=== PATIENT | male | born 1955 | race Asian ===

== ENCOUNTER 2018-07-01 00:39 | Emergency (ER) | payer MEDICAID ==
[~2018-07-01] VITALS: Ht 167.6 cm; Wt 68.2 kg
[~2018-07-01 00:39] MED LIST: AMLO-512 PO; ASPI81TA39 PO; CLOP75 PO; GLIP5 PO; ISOS30TA6 PO; LISI-661 PO; METO25XL PO; PRAV10TA39 PO
[2018-07-01 00:49] LABS: GLUCOSE,POINT OF CARE 151 MG/DL (70-110)
[2018-07-01] MEDS ORDERED: ISOS1TAB2 PO (00:49)
[2018-07-01] MEDS ORDERED: ATOR40TA28 PO (00:49)
[2018-07-01] MEDS ORDERED: GLIP5 PO (00:49)
[2018-07-01] MEDS ORDERED: RANO500T3 PO (00:49)
[2018-07-01] MEDS ORDERED: HYDR-2924 PO (00:49)
[2018-07-01] MEDS ORDERED: ALLO100T PO (00:49)
[2018-07-01] MEDS ORDERED: CARV6 PO (00:49)
[2018-07-01 01:07] LABS: BASOPHILS % (AUTO) 0.7 % (0.0-2.0); EOSINOPHILS % (AUTO) 6.2 % (1.0-6.0); HEMATOCRIT 36.3 % (41-53); HEMOGLOBIN 12.1 g/dL (13.5-17.5); LYMPHOCYTES # (AUTO) 1.9 K/uL (1.0-4.8); MEAN CORPUSCULAR HEMOGLOBIN 33.8 pg (26.0-34.0); MEAN CORPUSCULAR HGB CONC 33.4 G/dL (31.0-37.0); MEAN CORPUSCULAR VOLUME 101 fL (80-100); MONOCYTES # (AUTO) 0.8 K/uL (0.1-1.0); MONOCYTES % (AUTO) 9.3 % (2.0-9.0); NEUTROPHILS # (AUTO) 5.3 K/uL (1.8-7.7); NEUTROPHILS % (AUTO) 61.8 % (40.0-70.0); PLATELET COUNT (AUTO) 155 K/uL (150-450); RED CELL DISTRIBUTION WIDTH 12.3 % (11.5-14.5)
[2018-07-01 01:16] LABS: CALCIUM, TOTAL 8.5 mg/dL (8.8-10.5); CREATININE 3.5 mg/dL (0.60-1.30); POTASSIUM 5.1 mmol/L (3.5-5.1)
[2018-07-01 01:22] LABS: ALBUMIN 3.4 g/dL (3.4-5.0); BILIRUBIN,TOTAL 0.2 mg/dL (0.1-1.0)
[2018-07-01 01:29] LABS: PLATELET MORPHOLOGY COMMENT GIANT PLTS PRESENT
[2018-07-01] MEDS ORDERED: SODIUM POLYSTYRENE SULFONATE 15 GM/60 ML SUSPENSION BOTTLE PO ONE (02:15)
[2018-07-01 02:16] LABS: APPEARANCE,URINE CLEAR (CLEAR); BILIRUBIN,URINE NEGATIVE (NEGATIVE); GLUCOSE, URINE (UA) NEGATIVE (NEGATIVE); KETONES,URINE NEGATIVE (NEGATIVE); LEUKOCYTE ESTERASE ,URINE NEGATIVE (NEGATIVE); NITRATE,URINE NEGATIVE (NEGATIVE); OCCULT BLOOD,URINE NEGATIVE (NEGATIVE); PH,URINE 6.5 (5.0-8.0); PROTEIN,URINE SEE CONFIRM (NEGATIVE); UROBILINOGEN,URINE 0.2 mg/dL (<=1.0)
[2018-07-01 02:22] LABS: SULFOSALICYLIC ACID,URINE 3+ (Negative)
[2018-07-01 02:23] LABS: BACTERIA,URINE None Seen /HPF (None Seen); HYALINE CASTS, URINE 0-2 /LPF (None Seen); RBC,URINE 0-2 /HPF (0-2); SQUAMOUS EPITHELIAL CELL,UR Rare /LPF (None Seen); WBC,URINE 0-2 /HPF (0-5)
[2018-07-01 03:11] VITALS: BP 136/88
== END 2018-07-01 03:14 | disposition home or self-care (01) ==
LOC: EMS 00:39
DX: I12.9 Hypertensive chronic kidney disease with stage 1 through stage 4 chronic kidney disease, or unspecified chronic kidney disease (principal); E11.22 Type 2 diabetes mellitus with diabetic chronic kidney disease; N18.9 Chronic kidney disease, unspecified; E87.6 Hypokalemia; M19.90 Unspecified osteoarthritis, unspecified site; E78.00 Pure hypercholesterolemia, unspecified; I20.9 Angina pectoris, unspecified; Z90.5 Acquired absence of kidney; Z79.82 Long term (current) use of aspirin
CPT/HCPCS: 93005; 99285

== ENCOUNTER → 2019-08-03 | Outpatient (CLI) | payer MEDICAID ==
[~2019-08-03] MED LIST changes: +ALLO100T PO; -AMLO-512 PO; +ATOR40TA28 PO; +CARV6 PO; -CLOP75 PO; +CLOP75TA3 PO; +HYDR-2924 PO; +ISOS1TAB2 PO; -ISOS30TA6 PO; -LISI-661 PO; -METO25XL PO; -PRAV10TA39 PO; +RANO500T3 PO
== END | disposition home or self-care (01) ==
LOC: LABPV 11:25
PROVIDERS: ATTEND Internal Medicine Nephrology
DX: I70.0 Atherosclerosis of aorta (principal); I11.0 Hypertensive heart disease with heart failure; I50.20 Unspecified systolic (congestive) heart failure; E11.9 Type 2 diabetes mellitus without complications; E78.00 Pure hypercholesterolemia, unspecified

== ENCOUNTER 2022-12-22 17:27 | Emergency (ER) | payer MEDICAID ==
[~2022-12-22] VITALS: Ht 162.6 cm; Wt 59.1 kg
[~2022-12-22 17:27] MED LIST changes: +ALLO-97 PO; -ALLO100T PO; -CLOP75TA3 PO; +CLOP75TA60 PO; -GLIP5 PO; +GLIP5TAB12 PO; -HYDR-2924 PO; +HYDR50TA36 PO; -ISOS1TAB2 PO; +ISOS1TAB3 PO; +RANO500T27 PO; -RANO500T3 PO
[2022-12-22 21:00] VITALS: BP 125/69
== END 2022-12-22 21:02 | disposition home or self-care (01) ==
LOC: EMS 17:28
DX: S09.90XA Unspecified injury of head, initial encounter (principal); M19.90 Unspecified osteoarthritis, unspecified site; E78.00 Pure hypercholesterolemia, unspecified; E11.22 Type 2 diabetes mellitus with diabetic chronic kidney disease; I12.0 Hypertensive chronic kidney disease with stage 5 chronic kidney disease or end stage renal disease; N18.6 End stage renal disease; Z99.2 Dependence on renal dialysis; Z98.890 Other specified postprocedural states; X58.XXXA Exposure to other specified factors, initial encounter; Y93.89 Activity, other specified; Y92.89 Other specified places as the place of occurrence of the external cause; Y99.8 Other external cause status
CPT/HCPCS: 70450; 70486; 82962; 99284

== ENCOUNTER 2023-01-27 21:44 | Inpatient (IN) | payer MEDICAID ==
[~2023-01-27] VITALS: Ht 162.6 cm; Wt 57.5 kg
[~2023-01-27 21:44] MED LIST changes: -ASPI81TA39 PO; -ATOR40TA28 PO; +CARV3 PO; -CARV6 PO; +CHOL100062 PO; -CLOP75TA60 PO; +FOLI0.8T2 PO; +GLIP5TAB11 PO; -GLIP5TAB12 PO; -HYDR50TA36 PO; -ISOS1TAB3 PO; +LOSA25TA2 PO; +PRED-554 PO; -RANO500T27 PO; +ROSU20TA73 PO; +SEVE800T17 PO; +SPIR-37 PO
[2023-01-27] MEDS ORDERED: NITROGLYCERIN 2% (1 GM=INCH) OINTMENT PACKET TP ONE (22:15)
[2023-01-27] MEDS ORDERED: ASPIRIN 325 MG TABLET PO ONE (22:15)
[2023-01-27] MEDS ORDERED: NITROGLYCERIN 0.4 MG SUBLINGUAL TABLET #25 SL ONE (22:15)
[2023-01-27] MEDS ORDERED: RANO500T6 PO (22:21)
[2023-01-27] MEDS ORDERED: ISOS1TAB3 PO (22:21)
[2023-01-27] MEDS ORDERED: SUCR500T PO (22:21)
[2023-01-27] MEDS ORDERED: ASPI-1227 PO (22:21)
[2023-01-27] MEDS ORDERED: ONDANSETRON HCL 4 MG/2 ML VIAL IVP ONE (23:00)
[2023-01-27 23:10] LABS: CALCIUM, TOTAL 8.3 mg/dL (8.8-10.5); CREATININE 5.91 mg/dL (0.60-1.30); POTASSIUM 5.3 mmol/L (3.5-5.1)
[2023-01-27 23:13] LABS: ALBUMIN 3.8 g/dL (3.4-5.0); BILIRUBIN,TOTAL 0.7 mg/dL (0.1-1.0); TOTAL PROTEIN, SERUM 7.3 g/dL (6.4-8.2)
[2023-01-27 23:18] LABS: BASOPHILS % (AUTO) 0.1 % (0.0-2.0); EOSINOPHILS % (AUTO) 0 % (1.0-6.0); HEMATOCRIT 25.1 % (41-53); HEMOGLOBIN 7.9 g/dL (13.5-17.5); LYMPHOCYTES # (AUTO) 0.6 K/uL (1.0-4.8); LYMPHOCYTES % (AUTO) 5.1 % (22.0-44.0); MEAN CORPUSCULAR HEMOGLOBIN 34.8 pg (26.0-34.0); MEAN CORPUSCULAR HGB CONC 31.7 G/dL (31.0-37.0); MEAN CORPUSCULAR VOLUME 110 fL (80-100); MONOCYTES # (AUTO) 0.7 K/uL (0.1-1.0); MONOCYTES % (AUTO) 5.7 % (2.0-9.0); NEUTROPHILS # (AUTO) 10.5 K/uL (1.8-7.7); PLATELET COUNT (AUTO) 81 K/uL (150-450); RED BLOOD CELL COUNT(AUTO) 2.28 MIL/uL (4.50-5.90); RED CELL DISTRIBUTION WIDTH 17.7 % (11.5-14.5)
[2023-01-27 23:24] LABS: NEUTROPHILS % (AUTO) 89.1 % (40.0-70.0)
[2023-01-27] MEDS ORDERED: ACETAMINOPHEN 325 MG TABLET PO PRN (23:30)
[2023-01-27] MEDS ORDERED: ONDANSETRON HCL 4 MG/2 ML VIAL IVP PRN (23:30)
[2023-01-27] MEDS ORDERED: SODIUM CHLORIDE 0.9% 500 ML IV ONE (23:30)
[2023-01-27 23:42] LABS: LACTIC ACID 3.8 mmol/L (0.4-2.0)
[2023-01-27] MEDS ORDERED: DEXTROSE 50%-WATER 25 GM/50 ML SYRINGE IVP ONE (23:45)
[2023-01-27] MEDS ORDERED: INSULIN REGULAR, HUMAN 100 UNITS/ML SQ ONE (23:45)
[2023-01-28] VITALS (8 sets, daily range): BP systolic 87–106; BP diastolic 44–74
[2023-01-28] MEDS ORDERED: INSULIN REGULAR, HUMAN 100 UNITS/ML IVP ONE (00:15)
[2023-01-28 00:27] LABS: COVID AG,FIA SOURCE NASOPHARYNGEAL
[2023-01-28] MEDS ORDERED: PANTOPRAZOLE SODIUM 40 MG/VIAL IVP ONE (00:45)
[2023-01-28] MEDS ORDERED: INSULIN REGULAR, HUMAN 100 UNITS in SODIUM CHLORIDE 0.9% 99 ML IV PRN ×2 (00:45)
[2023-01-28] MEDS ORDERED: PIPERACILLIN SODIUM/TAZOBACTAM 0.75 GM in DEXTROSE 5%-WATER 50 ML IV PRN (01:00)
[2023-01-28] MEDS ORDERED: IOHEXOL 350 MG/ML 100 ML VIAL ONE (01:33)
[2023-01-28] MEDS ORDERED: SODIUM CHLORIDE 0.9% 100 ML ONE (01:33)
[2023-01-28] MEDS: PANTOPRAZOLE SODIUM 80 MG in SODIUM CHLORIDE 0.9% 100 ML IV SCH ×3 (02:02→21:05)
[2023-01-28] MEDS: PIPERACILLIN SODIUM/TAZOBACTAM 2.25 GM in DEXTROSE 5%-WATER 50 ML IV SCH ×2 (02:02→13:18)
[2023-01-28 02:16] LABS: GLUCOSE,POINT OF CARE 545 MG/DL (70-110)
[2023-01-28 02:55] LABS: % IRON SATURATION 84.4 % (30-44)
[2023-01-28 03:06] LABS: GLUCOSE,POINT OF CARE 533 MG/DL (70-110)
[2023-01-28] MEDS ORDERED: SODIUM CHLORIDE 0.9% 250 ML IV ONE ×2 (04:15→22:38)
[2023-01-28 04:21] LABS: GLUCOSE,POINT OF CARE 424 MG/DL (70-110)
[2023-01-28 04:46] LABS: BASOPHILS % (AUTO) 0.3 % (0.0-2.0); EOSINOPHILS % (AUTO) 0.1 % (1.0-6.0); LYMPHOCYTES # (AUTO) 0.6 K/uL (1.0-4.8); LYMPHOCYTES % (AUTO) 4.3 % (22.0-44.0); MEAN CORPUSCULAR HEMOGLOBIN 34.7 pg (26.0-34.0); MEAN CORPUSCULAR HGB CONC 32.1 G/dL (31.0-37.0); MEAN CORPUSCULAR VOLUME 108 fL (80-100); MONOCYTES # (AUTO) 0.5 K/uL (0.1-1.0); MONOCYTES % (AUTO) 3.2 % (2.0-9.0); NEUTROPHILS # (AUTO) 12.9 K/uL (1.8-7.7); PLATELET COUNT (AUTO) 73 K/uL (150-450); RED BLOOD CELL COUNT(AUTO) 1.91 MIL/uL (4.50-5.90); RED CELL DISTRIBUTION WIDTH 16.8 % (11.5-14.5)
[2023-01-28 04:50] LABS: CALCIUM, TOTAL 7.6 mg/dL (8.8-10.5); POTASSIUM 4.1 mmol/L (3.5-5.1)
[2023-01-28 04:52] LABS: NEUTROPHILS % (AUTO) 92.1 % (40.0-70.0)
[2023-01-28 04:55] LABS: HEMATOCRIT 20.6 % (41-53); HEMOGLOBIN 6.6 g/dL (13.5-17.5)
[2023-01-28 05:16] LABS: GLUCOSE,POINT OF CARE 366 MG/DL (70-110)
[2023-01-28 06:11] LABS: GLUCOSE,POINT OF CARE 274 MG/DL (70-110)
[2023-01-28 06:18] LABS: INR 1.1 (0.9-1.1); PROTHROMBIN TIME 11.9 SEC (9.4-11.6)
[2023-01-28] MEDS ORDERED: MISC MED-CONVERTED FROM AMBULATORY (Sucroferric Oxyhydroxide (Velphoro) 500 MG) PO SCH (08:00)
[2023-01-28] MEDS: CARVEDILOL 3.125 MG TABLET PO SCH ×2 (09:00→21:00)
[2023-01-28] MEDS: LOSARTAN POTASSIUM 25 MG TABLET PO SCH (09:00)
[2023-01-28] MEDS ORDERED: ISOSORB DINIT/HYDRALAZINE HCL 20-37.5 MG TABLET PO SCH (09:00)
[2023-01-28] MEDS: RANOLAZINE 500 MG ER TABLET PO SCH ×2 (09:00→09:34)
[2023-01-28] MEDS ORDERED: ASPIRIN 81 MG DR TABLET PO SCH (09:00)
[2023-01-28 09:29] LABS: HEMATOCRIT 26.2 % (41-53); HEMOGLOBIN 8.6 g/dL (13.5-17.5)
[2023-01-28] MEDS: SEVELAMER CARBONATE 800 MG TABLET PO SCH ×3 (09:34→17:30)
[2023-01-28] MEDS: ROSUVASTATIN CALCIUM 20 MG TABLET PO SCH (09:34)
[2023-01-28] MEDS: ALLOPURINOL 100 MG TABLET PO SCH (09:34)
[2023-01-28] MEDS: PredniSONE 10 MG TABLET PO SCH (09:34)
[2023-01-28 09:37] LABS: GLUCOSE,POINT OF CARE 116 MG/DL (70-110)
[2023-01-28] MEDS: FOLIC ACID/VIT B COMPLEX AND C TABLET PO SCH (09:43)
[2023-01-28 13:01] LABS: GLUCOSE,POINT OF CARE 114 MG/DL (70-110)
[2023-01-28 13:36] LABS: GLUCOSE,POINT OF CARE 152 MG/DL (70-110)
[2023-01-28 13:36] LABS: GLUCOSE,POINT OF CARE 155 MG/DL (70-110)
[2023-01-28] MEDS ORDERED: ISOS1TAB3 PO (13:58)
[2023-01-28] MEDS ORDERED: LOSA-381 PO (13:58)
[2023-01-28] MEDS ORDERED: DEXTROSE 50%-WATER 25 GM/50 ML SYRINGE IVP PRN (15:00)
[2023-01-28] MEDS: -POST HEMODIALYSIS NOTE- MISC SCH (17:00)
[2023-01-28] MEDS: INSULIN LISPRO 100 UNITS/ML SQ PRN ×3 (17:38→21:20)
[2023-01-28 17:51] LABS: GLUCOSE,POINT OF CARE 260 MG/DL (70-110)
[2023-01-28] MEDS ORDERED: NITROGLYCERIN 0.4 MG SUBLINGUAL TABLET #25 SL PRN (18:00)
[2023-01-28] MEDS ORDERED: FOLIC ACID/VIT B COMPLEX AND C TABLET PO SCH (19:15)
[2023-01-28] MEDS ORDERED: NOREPINEPHRINE 8 MG/D5%-WATER 250 ML IV PRN (22:45)
[2023-01-29] VITALS (14 sets, daily range): BP systolic 90–122; BP diastolic 30–78
[2023-01-29] MEDS: PIPERACILLIN SODIUM/TAZOBACTAM 2.25 GM in DEXTROSE 5%-WATER 50 ML IV SCH ×2 (00:38→12:05)
[2023-01-29 03:46] LABS: GLUCOSE,POINT OF CARE 152 MG/DL (70-110)
[2023-01-29] MEDS: INSULIN LISPRO 100 UNITS/ML SQ PRN ×3 (05:31→21:06)
[2023-01-29 05:54] LABS: BASOPHILS % (AUTO) 0.2 % (0.0-2.0); EOSINOPHILS % (AUTO) 0.6 % (1.0-6.0); HEMATOCRIT 29.6 % (41-53); HEMOGLOBIN 9.9 g/dL (13.5-17.5); LYMPHOCYTES # (AUTO) 0.9 K/uL (1.0-4.8); LYMPHOCYTES % (AUTO) 8.1 % (22.0-44.0); MEAN CORPUSCULAR HEMOGLOBIN 35.1 pg (26.0-34.0); MEAN CORPUSCULAR HGB CONC 33.3 G/dL (31.0-37.0); MEAN CORPUSCULAR VOLUME 105 fL (80-100); MONOCYTES # (AUTO) 0.5 K/uL (0.1-1.0); MONOCYTES % (AUTO) 4.7 % (2.0-9.0); NEUTROPHILS # (AUTO) 9.9 K/uL (1.8-7.7); PLATELET COUNT (AUTO) 92 K/uL (150-450); RED BLOOD CELL COUNT(AUTO) 2.81 MIL/uL (4.50-5.90); RED CELL DISTRIBUTION WIDTH 19.4 % (11.5-14.5)
[2023-01-29 06:16] LABS: CALCIUM, TOTAL 8.5 mg/dL (8.8-10.5); CREATININE 6.81 mg/dL (0.60-1.30); POTASSIUM 5.1 mmol/L (3.5-5.1)
[2023-01-29] MEDS: PANTOPRAZOLE SODIUM 80 MG in SODIUM CHLORIDE 0.9% 100 ML IV SCH ×2 (06:38→17:17)
[2023-01-29 06:47] LABS: NEUTROPHILS % (AUTO) 86.4 % (40.0-70.0)
[2023-01-29 07:11] LABS: GLUCOSE,POINT OF CARE 150 MG/DL (70-110)
[2023-01-29] MEDS: SEVELAMER CARBONATE 800 MG TABLET PO SCH ×3 (08:45→17:17)
[2023-01-29] MEDS: FOLIC ACID/VIT B COMPLEX AND C TABLET PO SCH (08:46)
[2023-01-29] MEDS: EPOETIN ALFA 10,000 UNITS/ML VIAL SQ SCH (08:46)
[2023-01-29] MEDS: PredniSONE 10 MG TABLET PO SCH (08:46)
[2023-01-29] MEDS: ALLOPURINOL 100 MG TABLET PO SCH (08:46)
[2023-01-29] MEDS: ROSUVASTATIN CALCIUM 20 MG TABLET PO SCH (08:46)
[2023-01-29] MEDS: LOSARTAN POTASSIUM 25 MG TABLET PO SCH (09:00)
[2023-01-29] MEDS: CARVEDILOL 3.125 MG TABLET PO SCH ×2 (09:00→20:00)
[2023-01-29] MEDS: -POST HEMODIALYSIS NOTE- MISC SCH (09:57)
[2023-01-29] MEDS: ASPIRIN 81 MG DR TABLET PO SCH (10:46)
[2023-01-29] MEDS ORDERED: SODIUM CHLORIDE 0.9% 2,000 ML ONE (12:17)
[2023-01-29 13:56] LABS: GLUCOSE,POINT OF CARE 126 MG/DL (70-110)
[2023-01-29 13:56] LABS: GLUCOSE,POINT OF CARE 60 MG/DL (70-110)
[2023-01-29 17:57] LABS: GLUCOSE,POINT OF CARE 134 MG/DL (70-110)
[2023-01-29 20:21] LABS: GLUCOSE,POINT OF CARE 141 MG/DL (70-110)
[2023-01-30] VITALS: BP 107/55
[2023-01-30] MEDS: PIPERACILLIN SODIUM/TAZOBACTAM 2.25 GM in DEXTROSE 5%-WATER 50 ML IV SCH ×2 (00:37→13:11)
[2023-01-30] MEDS: PANTOPRAZOLE SODIUM 80 MG in SODIUM CHLORIDE 0.9% 100 ML IV SCH ×3 (03:20→23:24)
[2023-01-30 04:00] VITALS: BP 100/77
[2023-01-30 06:26] LABS: GLUCOSE,POINT OF CARE 81 MG/DL (70-110)
[2023-01-30 07:40] LABS: BASOPHILS % (AUTO) 0.1 % (0.0-2.0); EOSINOPHILS % (AUTO) 1.2 % (1.0-6.0); HEMOGLOBIN 8.9 g/dL (13.5-17.5); LYMPHOCYTES # (AUTO) 0.7 K/uL (1.0-4.8); LYMPHOCYTES % (AUTO) 9.5 % (22.0-44.0); MEAN CORPUSCULAR HEMOGLOBIN 34.7 pg (26.0-34.0); MEAN CORPUSCULAR VOLUME 105 fL (80-100); MONOCYTES # (AUTO) 0.4 K/uL (0.1-1.0); MONOCYTES % (AUTO) 5.3 % (2.0-9.0); NEUTROPHILS % (AUTO) 83.9 % (40.0-70.0); PLATELET COUNT (AUTO) 72 K/uL (150-450); RED BLOOD CELL COUNT(AUTO) 2.57 MIL/uL (4.50-5.90); RED CELL DISTRIBUTION WIDTH 18.7 % (11.5-14.5)
[2023-01-30 08:00] VITALS: BP 103/64
[2023-01-30 08:07] LABS: CALCIUM, TOTAL 8.5 mg/dL (8.8-10.5); CREATININE 5.09 mg/dL (0.60-1.30); POTASSIUM 4.3 mmol/L (3.5-5.1)
[2023-01-30 08:41] LABS: CHOL/HDL RATIO 1.8 (4.2-7.3)
[2023-01-30] MEDS: CARVEDILOL 3.125 MG TABLET PO SCH ×2 (09:00→21:00)
[2023-01-30] MEDS: LOSARTAN POTASSIUM 25 MG TABLET PO SCH (09:00)
[2023-01-30] MEDS: ASPIRIN 81 MG DR TABLET PO SCH (09:00)
[2023-01-30] MEDS: SEVELAMER CARBONATE 800 MG TABLET PO SCH ×3 (09:00→17:34)
[2023-01-30] MEDS: ALLOPURINOL 100 MG TABLET PO SCH (09:01)
[2023-01-30] MEDS: ROSUVASTATIN CALCIUM 20 MG TABLET PO SCH (09:02)
[2023-01-30] MEDS: PredniSONE 10 MG TABLET PO SCH (09:02)
[2023-01-30] MEDS: FOLIC ACID/VIT B COMPLEX AND C TABLET PO SCH (09:05)
[2023-01-30] MEDS: -POST HEMODIALYSIS NOTE- MISC SCH (09:06)
[2023-01-30] MEDS ORDERED: NITR0.4T52 SL (11:21)
[2023-01-30] MEDS ORDERED: CARV6.2534 PO (11:21)
[2023-01-30] MEDS ORDERED: FURO20TA4 PO (11:21)
[2023-01-30] MEDS ORDERED: HYDR25TA84 PO (11:21)
[2023-01-30 12:00] VITALS: BP 99/60
[2023-01-30] MEDS: INSULIN LISPRO 100 UNITS/ML SQ PRN ×3 (13:10→21:35)
[2023-01-30 16:00] VITALS: BP 100/57
[2023-01-30 20:00] VITALS: BP 94/59
[2023-01-31] VITALS: BP 101/72
[2023-01-31] MEDS ORDERED: SODIUM CHLORIDE 0.9% 250 ML IV ONE ×2 (00:16→23:59)
[2023-01-31] MEDS: PIPERACILLIN SODIUM/TAZOBACTAM 2.25 GM in DEXTROSE 5%-WATER 50 ML IV SCH ×2 (01:48→14:07)
[2023-01-31 04:00] VITALS: BP 89/62
[2023-01-31] MEDS: INSULIN LISPRO 100 UNITS/ML SQ PRN ×2 (06:44→17:38)
[2023-01-31 06:51] LABS: GLUCOSE,POINT OF CARE 127 MG/DL (70-110)
[2023-01-31 07:51] LABS: GLUCOSE,POINT OF CARE 216 MG/DL (70-110)
[2023-01-31 07:51] LABS: GLUCOSE,POINT OF CARE 285 MG/DL (70-110)
[2023-01-31 07:51] LABS: GLUCOSE,POINT OF CARE 276 MG/DL (70-110)
[2023-01-31 08:00] VITALS: BP 125/56
[2023-01-31] MEDS: SEVELAMER CARBONATE 800 MG TABLET PO SCH ×3 (08:21→17:21)
[2023-01-31] MEDS: CARVEDILOL 3.125 MG TABLET PO SCH ×3 (08:23→20:19)
[2023-01-31] MEDS: PANTOPRAZOLE SODIUM 80 MG in SODIUM CHLORIDE 0.9% 100 ML IV SCH (08:23)
[2023-01-31] MEDS: -POST HEMODIALYSIS NOTE- MISC SCH (08:23)
[2023-01-31] MEDS: ALLOPURINOL 100 MG TABLET PO SCH (08:23)
[2023-01-31 08:24] LABS: BASOPHILS % (AUTO) 0.6 % (0.0-2.0); EOSINOPHILS % (AUTO) 2.5 % (1.0-6.0); HEMATOCRIT 24.8 % (41-53); HEMOGLOBIN 8.2 g/dL (13.5-17.5); MEAN CORPUSCULAR HEMOGLOBIN 34.7 pg (26.0-34.0); MEAN CORPUSCULAR HGB CONC 32.8 G/dL (31.0-37.0); MEAN CORPUSCULAR VOLUME 106 fL (80-100); MONOCYTES # (AUTO) 0.4 K/uL (0.1-1.0); MONOCYTES % (AUTO) 6.7 % (2.0-9.0); NEUTROPHILS # (AUTO) 4.4 K/uL (1.8-7.7); NEUTROPHILS % (AUTO) 74.2 % (40.0-70.0); PLATELET COUNT (AUTO) 76 K/uL (150-450); RED BLOOD CELL COUNT(AUTO) 2.35 MIL/uL (4.50-5.90); RED CELL DISTRIBUTION WIDTH 18.4 % (11.5-14.5)
[2023-01-31] MEDS: ASPIRIN 81 MG DR TABLET PO SCH (08:24)
[2023-01-31] MEDS: FOLIC ACID/VIT B COMPLEX AND C TABLET PO SCH (08:24)
[2023-01-31] MEDS: LOSARTAN POTASSIUM 25 MG TABLET PO SCH ×3 (08:24→09:00)
[2023-01-31] MEDS: ROSUVASTATIN CALCIUM 20 MG TABLET PO SCH (08:24)
[2023-01-31 08:33] LABS: HEMOGLOBIN A1C 7.5 % (3.8-5.6)
[2023-01-31 08:43] LABS: ALBUMIN 2.7 g/dL (3.4-5.0); BILIRUBIN,TOTAL 0.6 mg/dL (0.1-1.0); CALCIUM, TOTAL 7.9 mg/dL (8.8-10.5); CREATININE 6.68 mg/dL (0.60-1.30); POTASSIUM 4.4 mmol/L (3.5-5.1); TOTAL PROTEIN, SERUM 5.7 g/dL (6.4-8.2)
[2023-01-31 11:36] LABS: GLUCOSE,POINT OF CARE 108 MG/DL (70-110)
[2023-01-31 12:00] VITALS: BP 94/59
[2023-01-31] MEDS ORDERED: IOHEXOL 350 MG/ML 100 ML VIAL ONE (13:50)
[2023-01-31] MEDS ORDERED: SODIUM CHLORIDE 0.9% 100 ML ONE (13:50)
[2023-01-31 16:00] VITALS: BP 100/65
[2023-01-31 20:05] VITALS: BP 95/57
[2023-01-31 20:16] LABS: GLUCOSE,POINT OF CARE 165 MG/DL (70-110)
[2023-02-01] VITALS (16 sets, daily range): BP systolic 86–134; BP diastolic 42–113
[2023-02-01] MEDS: PIPERACILLIN SODIUM/TAZOBACTAM 2.25 GM in DEXTROSE 5%-WATER 50 ML IV SCH ×2 (00:05→18:22)
[2023-02-01] MEDS: INSULIN LISPRO 100 UNITS/ML SQ PRN ×2 (05:09→20:05)
[2023-02-01] MEDS: -POST HEMODIALYSIS NOTE- MISC SCH (09:00)
[2023-02-01] MEDS: EPOETIN ALFA 10,000 UNITS/ML VIAL SQ SCH (09:00)
[2023-02-01] MEDS: FOLIC ACID/VIT B COMPLEX AND C TABLET PO SCH (09:36)
[2023-02-01] MEDS: SEVELAMER CARBONATE 800 MG TABLET PO SCH ×3 (09:36→18:23)
[2023-02-01] MEDS: ALLOPURINOL 100 MG TABLET PO SCH (09:36)
[2023-02-01] MEDS: ASPIRIN 81 MG DR TABLET PO SCH (09:37)
[2023-02-01] MEDS: ROSUVASTATIN CALCIUM 20 MG TABLET PO SCH (09:44)
[2023-02-01] MEDS: PredniSONE 10 MG TABLET PO SCH (09:44)
[2023-02-01 10:01] LABS: GLUCOMETER DEV NAME(LOC) 5N.2C; GLUCOSE,POINT OF CARE 130 MG/DL (70-110)
[2023-02-01 10:01] LABS: GLUCOMETER DEV NAME(LOC) 5N.2C; GLUCOSE,POINT OF CARE 161 MG/DL (70-110)
[2023-02-01 10:01] LABS: GLUCOMETER DEV NAME(LOC) 5S.2C; GLUCOSE,POINT OF CARE 206 MG/DL (70-110)
[2023-02-01] MEDS ORDERED: SODIUM CHLORIDE 0.9% 200 ML ONE (11:11)
[2023-02-01 12:19] LABS: BASOPHILS % (AUTO) 1.2 % (0.0-2.0); EOSINOPHILS % (AUTO) 2.6 % (1.0-6.0); HEMATOCRIT 23.6 % (41-53); HEMOGLOBIN 7.9 g/dL (13.5-17.5); LYMPHOCYTES # (AUTO) 0.4 K/uL (1.0-4.8); LYMPHOCYTES % (AUTO) 10.1 % (22.0-44.0); MEAN CORPUSCULAR HEMOGLOBIN 35.4 pg (26.0-34.0); MEAN CORPUSCULAR HGB CONC 33.5 G/dL (31.0-37.0); MEAN CORPUSCULAR VOLUME 106 fL (80-100); MONOCYTES # (AUTO) 0.2 K/uL (0.1-1.0); MONOCYTES % (AUTO) 5.1 % (2.0-9.0); NEUTROPHILS # (AUTO) 3.1 K/uL (1.8-7.7); PLATELET COUNT (AUTO) 81 K/uL (150-450); RED BLOOD CELL COUNT(AUTO) 2.23 MIL/uL (4.50-5.90); RED CELL DISTRIBUTION WIDTH 18.7 % (11.5-14.5)
[2023-02-01 12:36] LABS: ALBUMIN 2.5 g/dL (3.4-5.0); BILIRUBIN,TOTAL 0.4 mg/dL (0.1-1.0); CALCIUM, TOTAL 7.7 mg/dL (8.8-10.5); CREATININE 5.94 mg/dL (0.60-1.30); POTASSIUM 4.1 mmol/L (3.5-5.1); TOTAL PROTEIN, SERUM 5.4 g/dL (6.4-8.2)
[2023-02-01 18:06] LABS: GLUCOMETER DEV NAME(LOC) 5N.2C; GLUCOSE,POINT OF CARE 261 MG/DL (70-110)
[2023-02-01] MEDS: CARVEDILOL 3.125 MG TABLET PO SCH ×2 (18:13→20:05)
[2023-02-01 20:11] LABS: GLUCOMETER DEV NAME(LOC) 5N.2C; GLUCOSE,POINT OF CARE 358 MG/DL (70-110)
[2023-02-01 21:26] LABS: GLUCOMETER DEV NAME(LOC) 5S.2C; GLUCOSE,POINT OF CARE 215 MG/DL (70-110)
[2023-02-02] MEDS: PIPERACILLIN SODIUM/TAZOBACTAM 2.25 GM in DEXTROSE 5%-WATER 50 ML IV SCH ×2 (01:01→13:00)
[2023-02-02 04:46] VITALS: BP 91/57
[2023-02-02] MEDS: INSULIN LISPRO 100 UNITS/ML SQ PRN ×5 (06:06→20:17)
[2023-02-02 06:21] LABS: GLUCOMETER DEV NAME(LOC) 5N.2C; GLUCOSE,POINT OF CARE 337 MG/DL (70-110)
[2023-02-02 07:15] LABS: BASOPHILS % (AUTO) 0.3 % (0.0-2.0); EOSINOPHILS % (AUTO) 1.7 % (1.0-6.0); HEMATOCRIT 26.8 % (41-53); HEMOGLOBIN 8.8 g/dL (13.5-17.5); LYMPHOCYTES # (AUTO) 0.6 K/uL (1.0-4.8); LYMPHOCYTES % (AUTO) 11.9 % (22.0-44.0); MEAN CORPUSCULAR HEMOGLOBIN 35.3 pg (26.0-34.0); MEAN CORPUSCULAR HGB CONC 32.8 G/dL (31.0-37.0); MEAN CORPUSCULAR VOLUME 108 fL (80-100); MONOCYTES # (AUTO) 0.4 K/uL (0.1-1.0); MONOCYTES % (AUTO) 8.8 % (2.0-9.0); NEUTROPHILS # (AUTO) 3.8 K/uL (1.8-7.7); NEUTROPHILS % (AUTO) 77.3 % (40.0-70.0); PLATELET COUNT (AUTO) 82 K/uL (150-450); RED BLOOD CELL COUNT(AUTO) 2.49 MIL/uL (4.50-5.90)
[2023-02-02 07:27] VITALS: BP 102/61
[2023-02-02 07:35] LABS: ALBUMIN 2.6 g/dL (3.4-5.0); BILIRUBIN,TOTAL 0.4 mg/dL (0.1-1.0); CALCIUM, TOTAL 7.8 mg/dL (8.8-10.5); CREATININE 4.79 mg/dL (0.60-1.30); POTASSIUM 4.4 mmol/L (3.5-5.1); TOTAL PROTEIN, SERUM 5.9 g/dL (6.4-8.2)
[2023-02-02 08:05] LABS: GLUCOMETER DEV NAME(LOC) 5N.2C; GLUCOSE,POINT OF CARE 209 MG/DL (70-110)
[2023-02-02] MEDS: CARVEDILOL 3.125 MG TABLET PO SCH ×2 (08:54→20:16)
[2023-02-02] MEDS: PredniSONE 10 MG TABLET PO SCH (08:54)
[2023-02-02] MEDS: ALLOPURINOL 100 MG TABLET PO SCH (08:54)
[2023-02-02] MEDS: SEVELAMER CARBONATE 800 MG TABLET PO SCH ×3 (08:55→18:19)
[2023-02-02] MEDS: ROSUVASTATIN CALCIUM 20 MG TABLET PO SCH (08:55)
[2023-02-02] MEDS: -POST HEMODIALYSIS NOTE- MISC SCH (09:00)
[2023-02-02] MEDS: FOLIC ACID/VIT B COMPLEX AND C TABLET PO SCH (09:00)
[2023-02-02 11:20] VITALS: BP 88/54
[2023-02-02] MEDS: ASPIRIN 81 MG DR TABLET PO SCH (12:46)
[2023-02-02 13:56] LABS: GLUCOMETER DEV NAME(LOC) 5S.2C; GLUCOSE,POINT OF CARE 174 MG/DL (70-110)
[2023-02-02 15:59] VITALS: BP 92/58
[2023-02-02 17:01] LABS: GLUCOMETER DEV NAME(LOC) 5N.2C; GLUCOSE,POINT OF CARE 249 MG/DL (70-110)
[2023-02-02 20:21] VITALS: BP 107/61
[2023-02-02 20:22] LABS: GLUCOMETER DEV NAME(LOC) 5S.2C; GLUCOSE,POINT OF CARE 308 MG/DL (70-110)
[2023-02-03] VITALS (16 sets, daily range): BP systolic 96–121; BP diastolic 53–80
[2023-02-03] MEDS: PIPERACILLIN SODIUM/TAZOBACTAM 2.25 GM in DEXTROSE 5%-WATER 50 ML IV SCH ×2 (00:11→12:07)
[2023-02-03 05:51] LABS: GLUCOMETER DEV NAME(LOC) 5N.2C; GLUCOSE,POINT OF CARE 133 MG/DL (70-110)
[2023-02-03 06:42] LABS: BASOPHILS % (AUTO) 0.7 % (0.0-2.0); EOSINOPHILS % (AUTO) 2.6 % (1.0-6.0); HEMATOCRIT 25.1 % (41-53); HEMOGLOBIN 8.5 g/dL (13.5-17.5); LYMPHOCYTES # (AUTO) 0.6 K/uL (1.0-4.8); LYMPHOCYTES % (AUTO) 10.9 % (22.0-44.0); MEAN CORPUSCULAR HEMOGLOBIN 36.5 pg (26.0-34.0); MEAN CORPUSCULAR HGB CONC 33.8 G/dL (31.0-37.0); MEAN CORPUSCULAR VOLUME 108 fL (80-100); MONOCYTES # (AUTO) 0.5 K/uL (0.1-1.0); MONOCYTES % (AUTO) 9.1 % (2.0-9.0); NEUTROPHILS # (AUTO) 3.9 K/uL (1.8-7.7); NEUTROPHILS % (AUTO) 76.7 % (40.0-70.0); PLATELET COUNT (AUTO) 99 K/uL (150-450); RED BLOOD CELL COUNT(AUTO) 2.33 MIL/uL (4.50-5.90); RED CELL DISTRIBUTION WIDTH 19.6 % (11.5-14.5)
[2023-02-03 07:49] LABS: ALBUMIN 2.6 g/dL (3.4-5.0); BILIRUBIN,TOTAL 0.5 mg/dL (0.1-1.0); CALCIUM, TOTAL 7.7 mg/dL (8.8-10.5); CREATININE 6.43 mg/dL (0.60-1.30); POTASSIUM 5.2 mmol/L (3.5-5.1); TOTAL PROTEIN, SERUM 5.7 g/dL (6.4-8.2)
[2023-02-03] MEDS: SEVELAMER CARBONATE 800 MG TABLET PO SCH ×3 (08:25→17:47)
[2023-02-03] MEDS: PredniSONE 10 MG TABLET PO SCH (08:26)
[2023-02-03] MEDS: EPOETIN ALFA 10,000 UNITS/ML VIAL SQ SCH (08:26)
[2023-02-03] MEDS: ALLOPURINOL 100 MG TABLET PO SCH (08:26)
[2023-02-03] MEDS: ROSUVASTATIN CALCIUM 20 MG TABLET PO SCH (08:26)
[2023-02-03] MEDS: FOLIC ACID/VIT B COMPLEX AND C TABLET PO SCH (08:26)
[2023-02-03] MEDS: ASPIRIN 81 MG DR TABLET PO SCH (08:26)
[2023-02-03] MEDS: CARVEDILOL 3.125 MG TABLET PO SCH ×2 (08:28→21:30)
[2023-02-03] MEDS: -POST HEMODIALYSIS NOTE- MISC SCH (08:28)
[2023-02-03] MEDS: INSULIN LISPRO 100 UNITS/ML SQ PRN ×2 (11:48→18:01)
[2023-02-03] MEDS ORDERED: SODIUM CHLORIDE 0.9% 2,000 ML ONE (16:21)
[2023-02-03 19:46] LABS: GLUCOMETER DEV NAME(LOC) 5S.2C; GLUCOSE,POINT OF CARE 276 MG/DL (70-110)
[2023-02-03 19:46] LABS: GLUCOMETER DEV NAME(LOC) 5S.2C; GLUCOSE,POINT OF CARE 310 MG/DL (70-110)
[2023-02-04] LABS: GLUCOMETER DEV NAME(LOC) 5S.2C; GLUCOSE,POINT OF CARE 151 MG/DL (70-110)
[2023-02-04] MEDS: PIPERACILLIN SODIUM/TAZOBACTAM 2.25 GM in DEXTROSE 5%-WATER 50 ML IV SCH ×2 (01:26→11:52)
[2023-02-04 05:05] VITALS: BP 116/66
[2023-02-04] MEDS: INSULIN LISPRO 100 UNITS/ML SQ PRN (05:53)
[2023-02-04 06:21] LABS: GLUCOMETER DEV NAME(LOC) 5S.2C; GLUCOSE,POINT OF CARE 244 MG/DL (70-110)
[2023-02-04 06:36] LABS: BASOPHILS % (AUTO) 0.6 % (0.0-2.0); EOSINOPHILS % (AUTO) 2.1 % (1.0-6.0); HEMATOCRIT 26.8 % (41-53); HEMOGLOBIN 8.9 g/dL (13.5-17.5); LYMPHOCYTES # (AUTO) 0.8 K/uL (1.0-4.8); MEAN CORPUSCULAR HEMOGLOBIN 36.6 pg (26.0-34.0); MEAN CORPUSCULAR HGB CONC 33.3 G/dL (31.0-37.0); MEAN CORPUSCULAR VOLUME 110 fL (80-100); MONOCYTES # (AUTO) 0.6 K/uL (0.1-1.0); MONOCYTES % (AUTO) 10.7 % (2.0-9.0); NEUTROPHILS % (AUTO) 71.6 % (40.0-70.0); PLATELET COUNT (AUTO) 111 K/uL (150-450); RED BLOOD CELL COUNT(AUTO) 2.44 MIL/uL (4.50-5.90); RED CELL DISTRIBUTION WIDTH 19.7 % (11.5-14.5)
[2023-02-04 07:42] LABS: CREATININE 4.63 mg/dL (0.60-1.30); POTASSIUM 4.3 mmol/L (3.5-5.1)
[2023-02-04 07:43] LABS: ALBUMIN 2.6 g/dL (3.4-5.0); BILIRUBIN,TOTAL 0.4 mg/dL (0.1-1.0); CALCIUM, TOTAL 7.7 mg/dL (8.8-10.5); TOTAL PROTEIN, SERUM 5.8 g/dL (6.4-8.2)
[2023-02-04 08:00] VITALS: BP 113/68
[2023-02-04] MEDS: FOLIC ACID/VIT B COMPLEX AND C TABLET PO SCH (08:02)
[2023-02-04] MEDS: CARVEDILOL 3.125 MG TABLET PO SCH (08:02)
[2023-02-04] MEDS: ASPIRIN 81 MG DR TABLET PO SCH (08:02)
[2023-02-04] MEDS: ALLOPURINOL 100 MG TABLET PO SCH (08:02)
[2023-02-04] MEDS: SEVELAMER CARBONATE 800 MG TABLET PO SCH ×2 (08:02→11:53)
[2023-02-04] MEDS: -POST HEMODIALYSIS NOTE- MISC SCH (08:02)
[2023-02-04] MEDS ORDERED: INSULIN LISPRO 100 UNITS/ML SQ ONE (11:30)
[2023-02-04 11:37] VITALS: BP 108/81
[2023-02-04] MEDS ORDERED: SEVE800T17 PO (11:57)
[2023-02-04] MEDS ORDERED: PRED-729 PO (11:57)
[2023-02-04] MEDS ORDERED: FOLI0.8T2 PO (11:57)
[2023-02-04] MEDS ORDERED: CARV3 PO (11:57)
[2023-02-04] MEDS ORDERED: ASPI-1444 PO (11:57)
[2023-02-04 12:01] LABS: GLUCOMETER DEV NAME(LOC) 5S.2C; GLUCOSE,POINT OF CARE 404 MG/DL (70-110)
== END 2023-02-04 15:30 | disposition home health service (06) | DRG 720 ==
LOC: EMS 21:48 → ICU 01-28 05:00 → 5S 01-28 11:40
PROVIDERS: ADMIT Internal Medicine; ATTEND Internal Medicine
PROC: 30233N1 Transfusion of Nonautologous Red Blood Cells into Peripheral Vein, Percutaneous Approach (ICD-10-PCS; principal; 2023-01-28)
PROC: 5A1D70Z Performance of Urinary Filtration, Intermittent, Less than 6 Hours Per Day (ICD-10-PCS; 2023-01-30)
PROC: 5A1D70Z Performance of Urinary Filtration, Intermittent, Less than 6 Hours Per Day (ICD-10-PCS; 2023-02-02)
PROC: 5A1D70Z Performance of Urinary Filtration, Intermittent, Less than 6 Hours Per Day (ICD-10-PCS; 2023-02-04)
DX: A41.9 Sepsis, unspecified organism (principal); I21.4 Non-ST elevation (NSTEMI) myocardial infarction; E11.00 Type 2 diabetes mellitus with hyperosmolarity without nonketotic hyperglycemic-hyperosmolar coma (NKHHC); I50.43 Acute on chronic combined systolic (congestive) and diastolic (congestive) heart failure; K85.90 Acute pancreatitis without necrosis or infection, unspecified; E87.20 Acidosis, unspecified; I42.9 Cardiomyopathy, unspecified; J47.1 Bronchiectasis with (acute) exacerbation; D62 Acute posthemorrhagic anemia; E83.39 Other disorders of phosphorus metabolism; D63.1 Anemia in chronic kidney disease; N18.6 End stage renal disease; R04.2 Hemoptysis; E11.22 Type 2 diabetes mellitus with diabetic chronic kidney disease; I13.2 Hypertensive heart and chronic kidney disease with heart failure and with stage 5 chronic kidney disease, or end stage renal disease; K29.70 Gastritis, unspecified, without bleeding; I25.10 Atherosclerotic heart disease of native coronary artery without angina pectoris; E87.5 Hyperkalemia; I25.5 Ischemic cardiomyopathy; I49.3 Ventricular premature depolarization; E11.65 Type 2 diabetes mellitus with hyperglycemia; E78.00 Pure hypercholesterolemia, unspecified; N25.0 Renal osteodystrophy; N25.81 Secondary hyperparathyroidism of renal origin; K59.00 Constipation, unspecified; Z20.822 Contact with and (suspected) exposure to COVID-19; Z86.73 Personal history of transient ischemic attack (TIA), and cerebral infarction without residual deficits; Z90.5 Acquired absence of kidney; Z91.199 Patient's noncompliance with other medical treatment and regimen due to unspecified reason; Z79.84 Long term (current) use of oral hypoglycemic drugs; Z79.899 Other long term (current) drug therapy; Z79.82 Long term (current) use of aspirin; Z95.1 Presence of aortocoronary bypass graft; Z95.810 Presence of automatic (implantable) cardiac defibrillator; Z99.2 Dependence on renal dialysis
CPT/HCPCS: 71045; 71260; 74177; 80048; 80053; 80061; 82271; 82962; 83036; 83540; 83550; 83605; 83690; 83735; 83930; 84484; 85014; 85018; 85025; 85045; 85610; 85730; 86850; 86900; 86901; 86923; 87081; 87340; 90935; 93005; 93970; 97163; 99291; C9113; G0378; J0885; J1815; J2543; J7030; J7040; J7050; J7060; P9016; Q9967; 36415-L1; 36415-TC; J7512; Z7610